=== PATIENT | male | born 1945 ===

== ENCOUNTER 2022-09-14 05:35 | Day surgery (SDC) | payer OTHER ==
[~2022-09-14 05:35] MED LIST: ADULT LOW DOSE81 M1 PO; CRESTOR20 MG PO; DILTIAZEM ER120 M2 PO; FARXIGA10 MG PO; IRBESARTAN150 MG PO; LANTUS SOL100 UNIT/1; SYNTHROID50 MCG PO
== END 2022-09-14 09:20 | disposition home or self-care (01) ==
LOC: CIR.AMB 05:35
PROVIDERS: ATTEND Surgery Surgery of the Hand
DX: M67.843 Other specified disorders of tendon, right hand (principal); I10 Essential (primary) hypertension; E03.9 Hypothyroidism, unspecified; E11.9 Type 2 diabetes mellitus without complications; Z79.4 Long term (current) use of insulin